=== PATIENT | male | born 1950 | race Caucasian/White ===

== ENCOUNTER 2017-09-16 00:47 | Inpatient (IN) | payer MEDICARE, MEDICAID ==
[~2017-09-16] VITALS: Ht 177.8 cm; Wt 113.0 kg
[~2017-09-16 00:47] MED LIST: ALPR0.5T8 PO; DILT30 PO; DSS100 PO; LEVO125 PO; LOPE2 PO; OMEP20 PO; OXYB5XL PO; RIVA20TA PO
[2017-09-16 00:58] LABS: GLUCOSE,POINT OF CARE 161 MG/DL (70-110)
[2017-09-16] MEDS ORDERED: 0.9% SODIUM CHLORIDE 10 ML SYRINGE IVP PRN ×3 (01:00→09:30)
[2017-09-16 01:05] LABS: APPEARANCE,URINE CLEAR (CLEAR); BASOPHILS % (AUTO) 0.5 % (0.0-2.0); BILIRUBIN,URINE NEGATIVE (NEGATIVE); EOSINOPHILS % (AUTO) 2.9 % (1.0-6.0); GLUCOSE, URINE (UA) NEGATIVE (NEGATIVE); HEMATOCRIT 40.5 % (41-53); HEMOGLOBIN 14.2 g/dL (13.5-17.5); KETONES,URINE NEGATIVE (NEGATIVE); LEUKOCYTE ESTERASE ,URINE NEGATIVE (NEGATIVE); LYMPHOCYTES # (AUTO) 2.8 K/uL (1.0-4.8); LYMPHOCYTES % (AUTO) 39.5 % (22.0-44.0); MEAN CORPUSCULAR HGB CONC 34.9 G/dL (31.0-37.0); MEAN CORPUSCULAR VOLUME 89 fL (80-100); MONOCYTES # (AUTO) 0.6 K/uL (0.1-1.0); NEUTROPHILS # (AUTO) 3.4 K/uL (1.8-7.7); NEUTROPHILS % (AUTO) 49.1 % (40.0-70.0); NITRATE,URINE NEGATIVE (NEGATIVE); OCCULT BLOOD,URINE NEGATIVE (NEGATIVE); PH,URINE 5.5 (5.0-8.0); PLATELET COUNT (AUTO) 150 K/uL (150-450); PROTEIN,URINE NEGATIVE (NEGATIVE); RED BLOOD CELL COUNT(AUTO) 4.56 MIL/uL (4.50-5.90); RED CELL DISTRIBUTION WIDTH 13.3 % (11.5-14.5)
[2017-09-16 01:15] LABS: ANION GAP 11 mmol/L (8-16); CALCIUM, TOTAL 8.3 mg/dL (8.8-10.5); CARBON DIOXIDE 22 mmol/L (22-29); CHLORIDE 100 mmol/L (98-107); CREATININE 1.42 mg/dL (0.60-1.30); GLOMERULAR FILTR. RATE CALC 49 mL/min (>60); GLUCOSE,RANDOM 151 mg/dL (70-110); POTASSIUM 3.8 mmol/L (3.5-5.1); SODIUM SERUM 133 mmol/L (136-145); UREA NITROGEN, BLOOD 16 mg/dL (7-18)
[2017-09-16] MEDS ORDERED: SODIUM CHLORIDE 0.9% 1,000 ML IV ONE (01:15)
[2017-09-16] MEDS ORDERED: CefTRIAXone SODIUM 2 GM in DEXTROSE 5%-WATER 20 ML IV ONE (01:15)
[2017-09-16] MEDS ORDERED: ACETAMINOPHEN 1000 MG/ISO-OSM 100 ML IV ONE (01:15)
[2017-09-16] MEDS ORDERED: SODIUM CHLORIDE 0.9% 2,000 ML IV ONE (01:15)
[2017-09-16 01:16] LABS: D-DIMER 0.76 mg/L FEU (0.00-0.50); INR 1.2 (0.9-1.1); PROTHROMBIN TIME 12.5 SEC (9.4-11.6)
[2017-09-16 01:20] LABS: ABG A-A DIFF O2 580.4 mmHg (10-20.0); ABG BASE EXCESS -6.3 mmol/L (-2.0-3.0); ABG CARBOXYHEMOGLOBIN 1.4 % (0.0-1.5); ABG HCO3 20.6 mmol/L (22.0-26.0); ABG METHEMOGLOBIN 0.4 % (0.0-1.5); ABG OXYGEN CONTENT 18.9 mL/dL (15.0-23.0); ABG OXYGEN SATURATION 97.6 % (95.0-98.0); ABG OXYHEMOGLOBIN 95.8 % (94.0-100.0); ABG PCO2 27 mmHg (35-45); ABG PH 7.443 (7.35-7.450); ABG TOTAL HEMOGLOBIN 13.9 G/dL (12.0-18.0); PO2, ARTERIAL BG 106.9 mmHg (79.0-87.0); SOURCE, BLOOD GAS ARTERIAL; TEMPERATURE, FAHRENHEIT, BG 98.1 FAHREN (96.0-98.6)
[2017-09-16 01:21] LABS: O2 DEVICE,BLOOD GAS NON REBREATHER (ROOM AIR); SITE, BLOOD GAS RT RADIAL
[2017-09-16 01:25] LABS: LACTIC ACID 1.5 mmol/L (0.4-2.0)
[2017-09-16 01:26] LABS: B-TYPE NATRIURETIC PEPTIDE 39 pg/mL (0-100)
[2017-09-16 01:39] LABS: ALANINE AMINOTRANSFERASE 80 U/L (12-78); ALBUMIN 3.3 g/dL (3.4-5.0); ALKALINE PHOSPHATASE 66 U/L (46-116); ASPARTATE AMINOTRANSFERASE 76 U/L (15-37); BILIRUBIN,TOTAL 0.9 mg/dL (0.1-1.0); CREATINE KINASE MB 0.9 ng/mL (0-5); CREATINE KINASE, TOTAL 363 U/L (39-308); TOTAL PROTEIN, SERUM 7.4 g/dL (6.4-8.2)
[2017-09-16] MEDS: OXYGEN THERAPY IH SCH ×3 (01:39→19:58)
[2017-09-16] MEDS ORDERED: ACETAMINOPHEN 325 MG TABLET PO PRN (02:30)
[2017-09-16] MEDS ORDERED: ONDANSETRON HCL 4 MG/2 ML VIAL IVP PRN ×2 (02:30→09:30)
[2017-09-16] MEDS ORDERED: LORazepam 2 MG/ML VIAL IVP ONE (02:45)
[2017-09-16] MEDS ORDERED: KETOROLAC TROMETHAMINE 30 MG/ML VIAL IVP ONE (02:45)
[2017-09-16 04:50] VITALS: BP 104/63
[2017-09-16 08:00] VITALS: BP 84/59
[2017-09-16] MEDS ORDERED: ALBUTEROL SULFATE 2.5 MG/0.5 ML NEB SOLUTION NEB PRN (09:30)
[2017-09-16] MEDS: ALBUTEROL SULFATE 2.5 MG/0.5 ML NEB SOLUTION NEB SCH ×3 (09:30→19:42)
[2017-09-16] MEDS ORDERED: ZOLPIDEM TARTRATE 5 MG TABLET PO PRN (09:30)
[2017-09-16] MEDS: IPRATROPIUM BROMIDE 0.5 MG/2.5 ML NEB SOLUTION NEB SCH ×3 (09:30→19:42)
[2017-09-16] MEDS ORDERED: IPRATROPIUM BROMIDE 0.5 MG/2.5 ML NEB SOLUTION NEB PRN (09:30)
[2017-09-16] MEDS ORDERED: ALBUMIN HUMAN 25%-12.5GM/50ML 50 ML IV PRN (09:45)
[2017-09-16] MEDS ORDERED: IOVERSOL 350 MG/ML 150 ML VIAL ONE (09:56)
[2017-09-16] MEDS ORDERED: SODIUM CHLORIDE 0.9% 100 ML ONE (09:56)
[2017-09-16] MEDS ORDERED: HEPARIN SODIUM,PORCINE 5,000 UNITS/ML VIAL IVP ONE (11:45)
[2017-09-16] MEDS ORDERED: HEPARIN SODIUM,PORCINE 5,000 UNITS/ML VIAL IVP PRN ×2 (11:45)
[2017-09-16 12:00] VITALS: BP 100/69
[2017-09-16] MEDS: PANTOPRAZOLE SODIUM 40 MG/VIAL IVP SCH (12:19)
[2017-09-16 12:32] LABS: INR 1.2 (0.9-1.1)
[2017-09-16] MEDS: HEPARIN SODIUM 25000 UNITS/D5W 250 ML IV PRN (12:35)
[2017-09-16] MEDS ORDERED: *CLINICAL-LEVOFLOXACIN IVPB DOSING CLINICAL ONE (12:45)
[2017-09-16 16:00] VITALS: BP 98/61
[2017-09-16] MEDS: LEVOFLOXACIN 750 MG/D5% WATER 150 ML IV SCH (17:30)
[2017-09-16] MEDS ORDERED: SODIUM CHLORIDE 0.9% 250 ML IV ONE (17:32)
[2017-09-16 20:00] VITALS: BP 120/93
[2017-09-16] MEDS: LORazepam 2 MG/ML VIAL IVP PRN (20:11)
[2017-09-16] MEDS: ACETAMINOPHEN 325 MG TABLET PO PRN (21:40)
[2017-09-17] VITALS (7 sets, daily range): BP systolic 105–141; BP diastolic 56–76
[2017-09-17] MEDS: HEPARIN SODIUM 25000 UNITS/D5W 250 ML IV PRN (00:38)
[2017-09-17] MEDS: ALBUTEROL SULFATE 2.5 MG/0.5 ML NEB SOLUTION NEB SCH ×4 (01:49→20:16)
[2017-09-17] MEDS: IPRATROPIUM BROMIDE 0.5 MG/2.5 ML NEB SOLUTION NEB SCH ×4 (01:49→20:16)
[2017-09-17 05:04] LABS: BASOPHILS % (AUTO) 0.3 % (0.0-2.0); EOSINOPHILS % (AUTO) 0.4 % (1.0-6.0); HEMATOCRIT 35.2 % (41-53); HEMOGLOBIN 12.3 g/dL (13.5-17.5); LYMPHOCYTES # (AUTO) 2.4 K/uL (1.0-4.8); LYMPHOCYTES % (AUTO) 22.6 % (22.0-44.0); MEAN CORPUSCULAR HGB CONC 35.1 G/dL (31.0-37.0); MEAN CORPUSCULAR VOLUME 88 fL (80-100); MONOCYTES # (AUTO) 1.1 K/uL (0.1-1.0); MONOCYTES % (AUTO) 10.4 % (2.0-9.0); NEUTROPHILS % (AUTO) 66.3 % (40.0-70.0); RED BLOOD CELL COUNT(AUTO) 3.98 MIL/uL (4.50-5.90); RED CELL DISTRIBUTION WIDTH 13.9 % (11.5-14.5)
[2017-09-17 05:05] LABS: ANION GAP 10 mmol/L (8-16); CALCIUM, TOTAL 7.7 mg/dL (8.8-10.5); CARBON DIOXIDE 25 mmol/L (22-29); CHLORIDE 104 mmol/L (98-107); CREATININE 1.08 mg/dL (0.60-1.30); GLOMERULAR FILTR. RATE CALC > 60 mL/min (>60); GLUCOSE,RANDOM 107 mg/dL (70-110); POTASSIUM 3.3 mmol/L (3.5-5.1); SODIUM SERUM 139 mmol/L (136-145); UREA NITROGEN, BLOOD 16 mg/dL (7-18)
[2017-09-17 05:18] LABS: PLATELET COUNT (AUTO) 99 K/uL (150-450)
[2017-09-17 05:23] LABS: PLATELET MORPHOLOGY COMMENT LARGE PLTS PRESENT
[2017-09-17] MEDS: OXYGEN THERAPY IH SCH ×2 (08:05→20:18)
[2017-09-17] MEDS: PANTOPRAZOLE SODIUM 40 MG/VIAL IVP SCH (08:13)
[2017-09-17] MEDS ORDERED: POTASSIUM CHLORIDE 20 MEQ ER TABLET PO PRN (10:30)
[2017-09-17] MEDS: ACETAMINOPHEN 325 MG TABLET PO PRN (11:12)
[2017-09-17] MEDS: LEVOFLOXACIN 750 MG/D5% WATER 150 ML IV SCH (15:28)
[2017-09-17] MEDS: RIVAROXABAN 20 MG TABLET PO SCH (17:19)
[2017-09-17] MEDS: LORazepam 2 MG/ML VIAL IVP PRN (22:20)
[2017-09-18] VITALS (7 sets, daily range): BP systolic 113–149; BP diastolic 56–86
[2017-09-18] MEDS: ALBUTEROL SULFATE 2.5 MG/0.5 ML NEB SOLUTION NEB SCH ×4 (02:10→20:10)
[2017-09-18] MEDS: IPRATROPIUM BROMIDE 0.5 MG/2.5 ML NEB SOLUTION NEB SCH ×4 (02:10→20:10)
[2017-09-18 05:28] LABS: BASOPHILS % (AUTO) 0.3 % (0.0-2.0); EOSINOPHILS % (AUTO) 0.3 % (1.0-6.0); HEMOGLOBIN 12.2 g/dL (13.5-17.5); LYMPHOCYTES # (AUTO) 1.3 K/uL (1.0-4.8); LYMPHOCYTES % (AUTO) 12.1 % (22.0-44.0); MEAN CORPUSCULAR HGB CONC 34.8 G/dL (31.0-37.0); MEAN CORPUSCULAR VOLUME 89 fL (80-100); MONOCYTES # (AUTO) 0.9 K/uL (0.1-1.0); MONOCYTES % (AUTO) 8.1 % (2.0-9.0); NEUTROPHILS # (AUTO) 8.9 K/uL (1.8-7.7); NEUTROPHILS % (AUTO) 79.2 % (40.0-70.0); PLATELET COUNT (AUTO) 104 K/uL (150-450); RED BLOOD CELL COUNT(AUTO) 3.93 MIL/uL (4.50-5.90); RED CELL DISTRIBUTION WIDTH 13.8 % (11.5-14.5)
[2017-09-18 05:36] LABS: ANION GAP 6 mmol/L (8-16); CALCIUM, TOTAL 8.1 mg/dL (8.8-10.5); CARBON DIOXIDE 26 mmol/L (22-29); CHLORIDE 106 mmol/L (98-107); CREATININE 1.02 mg/dL (0.60-1.30); GLOMERULAR FILTR. RATE CALC > 60 mL/min (>60); GLUCOSE,RANDOM 99 mg/dL (70-110); INR 1.2 (0.9-1.1); POTASSIUM 3.9 mmol/L (3.5-5.1); PROTHROMBIN TIME 12.4 SEC (9.4-11.6); SODIUM SERUM 138 mmol/L (136-145); UREA NITROGEN, BLOOD 12 mg/dL (7-18)
[2017-09-18] MEDS: ACETAMINOPHEN 325 MG TABLET PO PRN (05:45)
[2017-09-18] MEDS: OXYGEN THERAPY IH SCH ×2 (08:00→20:04)
[2017-09-18] MEDS: PANTOPRAZOLE SODIUM 40 MG/VIAL IVP SCH (10:07)
[2017-09-18] MEDS ORDERED: SODIUM CHLORIDE 0.9% 500 ML IV ONE (14:19)
[2017-09-18] MEDS: LEVOFLOXACIN 750 MG/D5% WATER 150 ML IV SCH (14:35)
[2017-09-18] MEDS: RIVAROXABAN 20 MG TABLET PO SCH (17:12)
[2017-09-18] MEDS: QUEtiapine FUMARATE 25 MG TABLET PO SCH (20:00)
[2017-09-19] VITALS (7 sets, daily range): BP systolic 103–134; BP diastolic 50–73
[2017-09-19] MEDS: IPRATROPIUM BROMIDE 0.5 MG/2.5 ML NEB SOLUTION NEB SCH ×4 (02:04→19:49)
[2017-09-19] MEDS: ALBUTEROL SULFATE 2.5 MG/0.5 ML NEB SOLUTION NEB SCH ×4 (02:04→19:49)
[2017-09-19] MEDS: PANTOPRAZOLE SODIUM 40 MG/VIAL IVP SCH (08:19)
[2017-09-19] MEDS: LEVOFLOXACIN 750 MG/D5% WATER 150 ML IV SCH (13:37)
[2017-09-19] MEDS: OXYGEN THERAPY IH SCH ×2 (13:37→19:49)
[2017-09-19] MEDS ORDERED: ALPRAZolam 1 MG TABLET PO PRN (15:30)
[2017-09-19] MEDS: RIVAROXABAN 20 MG TABLET PO SCH (15:58)
[2017-09-19 16:07] LABS: ABG A-A DIFF O2 54.4 mmHg (10-20.0); ABG BASE EXCESS 2.2 mmol/L (-2.0-3.0); ABG CARBOXYHEMOGLOBIN 1.8 % (0.0-1.5); ABG HCO3 26.2 mmol/L (22.0-26.0); ABG METHEMOGLOBIN 0.2 % (0.0-1.5); ABG OXYGEN CONTENT 15.6 mL/dL (15.0-23.0); ABG OXYGEN SATURATION 85.7 % (95.0-98.0); ABG PCO2 39 mmHg (35-45); ABG TOTAL HEMOGLOBIN 13.2 G/dL (12.0-18.0); PO2, ARTERIAL BG 49.1 mmHg (79.0-87.0); SOURCE, BLOOD GAS ARTERIAL; TEMPERATURE, FAHRENHEIT, BG 98.6 FAHREN (96.0-98.6)
[2017-09-19 16:10] LABS: O2 DEVICE,BLOOD GAS ROOM AIR (ROOM AIR); SITE, BLOOD GAS RT RADIAL
[2017-09-19] MEDS: QUEtiapine FUMARATE 25 MG TABLET PO SCH (22:08)
[2017-09-20] VITALS (9 sets, daily range): BP systolic 99–149; BP diastolic 53–84
[2017-09-20] MEDS: IPRATROPIUM BROMIDE 0.5 MG/2.5 ML NEB SOLUTION NEB SCH ×4 (02:17→19:15)
[2017-09-20] MEDS: ALBUTEROL SULFATE 2.5 MG/0.5 ML NEB SOLUTION NEB SCH ×4 (02:17→19:15)
[2017-09-20 07:10] LABS: ANION GAP 8 mmol/L (8-16); CALCIUM, TOTAL 8.5 mg/dL (8.8-10.5); CARBON DIOXIDE 27 mmol/L (22-29); CHLORIDE 105 mmol/L (98-107); CREATININE 0.94 mg/dL (0.60-1.30); GLOMERULAR FILTR. RATE CALC > 60 mL/min (>60); GLUCOSE,RANDOM 110 mg/dL (70-110); SODIUM SERUM 140 mmol/L (136-145); UREA NITROGEN, BLOOD 9 mg/dL (7-18)
[2017-09-20 07:28] LABS: POTASSIUM 2.9 mmol/L (3.5-5.1)
[2017-09-20 07:37] LABS: BASOPHILS % (AUTO) 0.7 % (0.0-2.0); EOSINOPHILS % (AUTO) 2.9 % (1.0-6.0); HEMATOCRIT 40.3 % (41-53); HEMOGLOBIN 13.9 g/dL (13.5-17.5); LYMPHOCYTES # (AUTO) 1.8 K/uL (1.0-4.8); MEAN CORPUSCULAR HEMOGLOBIN 31.2 pg (26.0-34.0); MEAN CORPUSCULAR HGB CONC 34.4 G/dL (31.0-37.0); MEAN CORPUSCULAR VOLUME 91 fL (80-100); MONOCYTES # (AUTO) 0.8 K/uL (0.1-1.0); MONOCYTES % (AUTO) 11.9 % (2.0-9.0); NEUTROPHILS # (AUTO) 4.1 K/uL (1.8-7.7); NEUTROPHILS % (AUTO) 58.5 % (40.0-70.0); PLATELET COUNT (AUTO) 151 K/uL (150-450); RED BLOOD CELL COUNT(AUTO) 4.45 MIL/uL (4.50-5.90); RED CELL DISTRIBUTION WIDTH 13.7 % (11.5-14.5)
[2017-09-20] MEDS: OXYGEN THERAPY IH SCH ×2 (08:00→19:18)
[2017-09-20] MEDS: PANTOPRAZOLE SODIUM 40 MG/VIAL IVP SCH (08:08)
[2017-09-20] MEDS: POTASSIUM CHL 10 MEQ/WATER 50 ML IV PRN ×4 (08:08→12:12)
[2017-09-20] MEDS: LEVOFLOXACIN 750 MG/D5% WATER 150 ML IV SCH (13:20)
[2017-09-20] MEDS: ALPRAZolam 0.5 MG TABLET PO PRN (14:10)
[2017-09-20 14:23] LABS: ORGANISM ID Not indicated.; S PNEUMO SOURCE Urine; STREP PNEUMONIAE AG URINE Negative (Negative); STREP.PNEUMO BODY FLUID CULT. Not Indicated
[2017-09-20 14:23] LABS: ORGANISM ID Not indicated.; S PNEUMO SOURCE Urine; STREP PNEUMONIAE AG URINE Negative (Negative); STREP.PNEUMO BODY FLUID CULT. Not Indicated
[2017-09-20] MEDS: POTASSIUM CHLORIDE 20 MEQ ER TABLET PO PRN ×2 (15:39→20:57)
[2017-09-20] MEDS: RIVAROXABAN 20 MG TABLET PO SCH (17:00)
[2017-09-20 20:30] LABS: POTASSIUM 3.8 mmol/L (3.5-5.1)
[2017-09-20] MEDS: QUEtiapine FUMARATE 25 MG TABLET PO SCH (20:56)
[2017-09-21] MEDS: IPRATROPIUM BROMIDE 0.5 MG/2.5 ML NEB SOLUTION NEB SCH ×3 (01:36→14:21)
[2017-09-21] MEDS: ALBUTEROL SULFATE 2.5 MG/0.5 ML NEB SOLUTION NEB SCH ×3 (01:36→14:21)
[2017-09-21 03:48] VITALS: BP_SYST 124; BP_SYST 130; BP_DIAS 56
[2017-09-21 07:37] VITALS: BP 100/58
[2017-09-21 07:48] LABS: ALANINE AMINOTRANSFERASE 100 U/L (12-78); ALBUMIN 2.8 g/dL (3.4-5.0); ALKALINE PHOSPHATASE 49 U/L (46-116); ANION GAP 9 mmol/L (8-16); ASPARTATE AMINOTRANSFERASE 71 U/L (15-37); BILIRUBIN,TOTAL 0.7 mg/dL (0.1-1.0); CALCIUM, TOTAL 8.7 mg/dL (8.8-10.5); CARBON DIOXIDE 27 mmol/L (22-29); CHLORIDE 104 mmol/L (98-107); CREATININE 0.99 mg/dL (0.60-1.30); GLOMERULAR FILTR. RATE CALC > 60 mL/min (>60); GLUCOSE,RANDOM 95 mg/dL (70-110); POTASSIUM 3.6 mmol/L (3.5-5.1); SODIUM SERUM 140 mmol/L (136-145); TOTAL PROTEIN, SERUM 6.9 g/dL (6.4-8.2); UREA NITROGEN, BLOOD 8 mg/dL (7-18)
[2017-09-21] MEDS: PANTOPRAZOLE SODIUM 40 MG/VIAL IVP SCH (08:31)
[2017-09-21] MEDS: OXYGEN THERAPY IH SCH (08:31)
[2017-09-21] MEDS: POTASSIUM CHLORIDE 20 MEQ ER TABLET PO PRN (08:33)
[2017-09-21] MEDS: ALPRAZolam 0.5 MG TABLET PO PRN (08:43)
[2017-09-21 11:14] VITALS: BP 130/78
[2017-09-21] MEDS: LEVOFLOXACIN 750 MG/D5% WATER 150 ML IV SCH (12:12)
[2017-09-21 15:20] VITALS: BP 109/63
[2017-09-21] MEDS ORDERED: ALPR0.5T8 PO (16:06)
[2017-09-21] MEDS: RIVAROXABAN 20 MG TABLET PO SCH (17:02)
== END 2017-09-21 18:00 | disposition home or self-care (01) | DRG 871 ==
LOC: EMS 00:48 → ICU 02:00 → 5N 09-18 12:20 → 5S 09-19 16:40
PROVIDERS: ADMIT Internal Medicine; ATTEND Internal Medicine
DX: A41.9 Sepsis, unspecified organism (principal); J96.91 Respiratory failure, unspecified with hypoxia; J18.1 Lobar pneumonia, unspecified organism; N17.9 Acute kidney failure, unspecified; I27.82 Chronic pulmonary embolism; I50.30 Unspecified diastolic (congestive) heart failure; R65.20 Severe sepsis without septic shock; E03.9 Hypothyroidism, unspecified; E66.9 Obesity, unspecified; G89.29 Other chronic pain; M25.551 Pain in right hip; R53.81 Other malaise; H26.9 Unspecified cataract; E87.6 Hypokalemia; F12.90 Cannabis use, unspecified, uncomplicated; F41.1 Generalized anxiety disorder; H54.8 Legal blindness, as defined in USA; I11.0 Hypertensive heart disease with heart failure; Z79.01 Long term (current) use of anticoagulants; Z86.718 Personal history of other venous thrombosis and embolism; Z78.1 Physical restraint status; Z79.899 Other long term (current) drug therapy; Z68.35 Body mass index [BMI] 35.0-35.9, adult
CPT/HCPCS: 51702; 70450; 71275; 82308; 82805; 83605; 83735; 84132; 84145; 85379; 87040; 87070; 87081; 87205; 87449; 87899; 93005; 94640; 96365; 96366; 96375; 97161; 97530; 99291; C9113; J0131; J0696; J1644; J1885; J1956; J2060; J2405; J3480; J7040; J7050; J7060; P9047

== ENCOUNTER 2018-06-28 15:04 | Emergency (ER) | payer MEDICARE, MEDICAID ==
[~2018-06-28] VITALS: Ht 188 cm; Wt 113.6 kg
[~2018-06-28 15:04] MED LIST changes: -DILT30 PO; -LOPE2 PO; -OXYB5XL PO
[2018-06-28] MEDS ORDERED: QUET25TA PO (17:25)
[2018-06-28 18:00] LABS: BASOPHILS % (AUTO) 0.3 % (0.0-2.0); EOSINOPHILS % (AUTO) 0.4 % (1.0-6.0); HEMATOCRIT 43.6 % (41-53); HEMOGLOBIN 14.7 g/dL (13.5-17.5); LYMPHOCYTES # (AUTO) 2.2 K/uL (1.0-4.8); LYMPHOCYTES % (AUTO) 16.1 % (22.0-44.0); MEAN CORPUSCULAR HEMOGLOBIN 30.1 pg (26.0-34.0); MEAN CORPUSCULAR HGB CONC 33.7 G/dL (31.0-37.0); MEAN CORPUSCULAR VOLUME 89 fL (80-100); MONOCYTES # (AUTO) 1.5 K/uL (0.1-1.0); MONOCYTES % (AUTO) 10.7 % (2.0-9.0); NEUTROPHILS # (AUTO) 10.1 K/uL (1.8-7.7); NEUTROPHILS % (AUTO) 72.5 % (40.0-70.0); PLATELET COUNT (AUTO) 153 K/uL (150-450); RED BLOOD CELL COUNT(AUTO) 4.88 MIL/uL (4.50-5.90); RED CELL DISTRIBUTION WIDTH 13.6 % (11.5-14.5)
[2018-06-28 18:19] LABS: ANION GAP 7 mmol/L (8-16); CALCIUM, TOTAL 8.8 mg/dL (8.8-10.5); CARBON DIOXIDE 28 mmol/L (22-29); CHLORIDE 106 mmol/L (98-107); CREATININE 1.32 mg/dL (0.60-1.30); GLOMERULAR FILTR. RATE CALC 54 mL/min (>60); GLUCOSE,RANDOM 106 mg/dL (70-110); POTASSIUM 3.9 mmol/L (3.5-5.1); SODIUM SERUM 141 mmol/L (136-145); UREA NITROGEN, BLOOD 15 mg/dL (7-18)
[2018-06-28 18:25] LABS: ALANINE AMINOTRANSFERASE 177 U/L (12-78); ALBUMIN 3.2 g/dL (3.4-5.0); ALKALINE PHOSPHATASE 85 U/L (46-116); ASPARTATE AMINOTRANSFERASE 139 U/L (15-37); BILIRUBIN,TOTAL 1.1 mg/dL (0.1-1.0); TOTAL PROTEIN, SERUM 7.8 g/dL (6.4-8.2)
[2018-06-28 20:30] VITALS: BP 137/71
[2018-06-28 20:52] LABS: APPEARANCE,URINE CLEAR (CLEAR); GLUCOSE, URINE (UA) NEGATIVE (NEGATIVE); KETONES,URINE NEGATIVE (NEGATIVE); LEUKOCYTE ESTERASE ,URINE NEGATIVE (NEGATIVE); NITRATE,URINE NEGATIVE (NEGATIVE); OCCULT BLOOD,URINE NEGATIVE (NEGATIVE); PH,URINE 6.5 (5.0-8.0); PROTEIN,URINE NEGATIVE (NEGATIVE)
[2018-06-28 20:56] LABS: BILIRUBIN,URINE PRELIM. POSITIVE (NEGATIVE)
[2018-06-28 20:57] LABS: AMPHET/METH SCREEN,URINE NEGATIVE (NEGATIVE); BARBITURATE SCREEN, URINE NEGATIVE (NEGATIVE); BENZODIAZEPINES SCREEN,URINE POSITIVE (NEGATIVE); CANNABINOID SCREEN,URINE POSITIVE (NEGATIVE); COCAINE SCREEN,URINE NEGATIVE (NEGATIVE); METHADONE SCREEN, URINE NEGATIVE (NEGATIVE); OPIATE SCREEN,URINE NEGATIVE (NEGATIVE)
[2018-06-28 20:58] LABS: PHENCYCLIDINE SCREEN,URINE NEGATIVE (NEGATIVE)
[2018-06-28 21:00] LABS: BACTERIA,URINE None Seen /HPF (None Seen); RBC,URINE None Seen /HPF (0-2); SQUAMOUS EPITHELIAL CELL,UR Rare /LPF (None Seen); WBC,URINE None Seen /HPF (0-5)
== END 2018-06-28 21:25 | disposition home or self-care (01) ==
LOC: EMS 15:05
DX: T43.591A Poisoning by other antipsychotics and neuroleptics, accidental (unintentional), initial encounter (principal); R53.1 Weakness; H54.8 Legal blindness, as defined in USA; Z79.899 Other long term (current) drug therapy; Y92.89 Other specified places as the place of occurrence of the external cause
CPT/HCPCS: 36415; 80053; 80307; 81001; 85025; 93005; 99284; G0480